=== PATIENT | male | born 1950 | race Caucasian/White ===

== ENCOUNTER → 2018-06-18 | Outpatient (CLI) | payer BC, MEDICARE ==
--- NOTE | 2018-06-18 15:24 | RADRPT ---
Vent Rate: 60 bpm RR Interval: 0 msec SD Interval: 122 msec QRS Duration: 86 msec QT Interval: 404 msec QTC Interval: 404 msec P-R-T [place]: 46 - 72 - 67 degrees Normal sinus rhythm Normal ECG Electronically Signed By: Dillon Ochoa
== END | disposition home or self-care (01) ==
LOC: LAB 12:39
PROVIDERS: ATTEND Internal Medicine
DX: I10 Essential (primary) hypertension (principal); M19.90 Unspecified osteoarthritis, unspecified site; E78.5 Hyperlipidemia, unspecified; K21.9 Gastro-esophageal reflux disease without esophagitis
CPT/HCPCS: 71045; 80048; 81003; 85025; 85610; 85730; 93005

== ENCOUNTER → 2018-11-18 | Outpatient (CLI) | payer BC, MEDICARE | END | disposition home or self-care (01) | LOC: LAB 15:45 | PROVIDERS: ATTEND Internal Medicine | DX: I10 Essential (primary) hypertension (principal); M19.90 Unspecified osteoarthritis, unspecified site; E78.5 Hyperlipidemia, unspecified; K21.9 Gastro-esophageal reflux disease without esophagitis | CPT/HCPCS: 71045; 80048; 81003; 85025; 85610; 85730; 93005 ==